=== PATIENT | female | born 1955 | race Caucasian/White ===

== ENCOUNTER → 2017-02-10 | Outpatient (CLI) | payer MEDICAID | LOC: CIMAGING 10:31 | PROVIDERS: ATTEND Family Medicine | DX: Z12.31 Encounter for screening mammogram for malignant neoplasm of breast (principal); Z80.3 Family history of malignant neoplasm of breast | CPT/HCPCS: G0202 ==

== ENCOUNTER 2018-04-01 12:09 | Inpatient (IN) | payer MEDICAID ==
[2018-04-01] MEDS ORDERED: NS 1,000 ML IV ONE (12:38)
[2018-04-01] MEDS ORDERED: ONDANSETRON 4 MG/2 ML VIAL IVP ONE (12:38)
--- NOTE | 2018-04-01 12:50 | EDPHY ---
H & P Time Seen by Provider: 04/01/18 12:42 HPI/ROS: CHIEF COMPLAINT: GI bleed HISTORY OF PRESENT ILLNESS: The patient is a 63-year-old female with a history of alcohol abuse, liver disease and esophageal bleed who presents emergency department with new onset hematemesis and black stools. Patient's last episode of GI bleed was in September of 2015. At that time she was diagnosed with a proximal esophageal web that was dilated as well as a grade 3 esophageal varices and the lower esophagus. The patient had banding. Patient continues to drink alcohol. She developed yolanda hematemesis just prior to arrival. She also noted dark stools. She was well yesterday. She is not lightheaded or dizzy. No abdominal pain. No chest pain or shortness of breath. No fevers or chills. REVIEW OF SYSTEMS: 10 systems were reveiwed and are negative with the exception of the elements mentioned in the history of present illness. Past Medical/Surgical History: Includes upper gastrointestinal bleed, esophageal varices, anemia, portal hypertensive gastropathy, alcohol liver disease with cirrhosis, alcohol abuse Social history: Patient drinks alcohol. She does not smoke. She occasionally smokes THC. Smoking Status: Never smoked Physical Exam: Vitals noted. On her arrival she was hypotensive with systolic pressure in the 70s. Repeat systolic blood pressure was 103. Heart rate was 77. GENERAL: No acute distress, alert. HEENT: Eyes normal to inspection, normal pharynx, no signs of dehydration. NECK: Normal, supple. RESPIRATORY: Clear to auscultation bilaterally, no rales, rhonchi or wheezing. CVS: Regular rate and rhythm, no rubs, murmurs, or gallops. ABDOMEN: Soft, nontender, mild abdominal distention. BACK: Normal to inspection, no CVA tenderness. SKIN: Normal color, no rash, warm, dry. No pallor. EXTREMITIES: No pedal edema, no calf tenderness, no Homans sign or cords, no joint swelling. NEURO/PSYCH: Alert and oriented, normal mood and affect, normal motor sensory exam. No obvious cranial nerve deficit. Constitutional: Initial Vital Signs Temperature (C) 36.7 C 04/01/18 12:15 Heart Rate 84 04/01/18 12:15 Respiratory Rate 18 04/01/18 12:15 Blood Pressure 78/54 L 04/01/18 12:15 O2 Sat (%) 96 04/01/18 12:15 O2 Delivery Mode Room Air Allergies/Adverse Reactions: No Known Allergies Allergy (Verified 09/18/15 02:15) Home Medications: Medication Instructions Recorded Aspirin EC [Aspirin EC 81 mg (*)] 81 mg PO HS 04/01/18 Propranolol HCl [Inderal 40mg (*)] 40 mg PO BID 04/01/18 Medical Decision Making ED Course/Re-evaluation: In the emergency department discussed possible etiologies with the patient. I answered all her questions. IV x2 was placed. Laboratory studies including type and screen were ordered. The patient was given Protonix and octreotide. After my initial evaluation I paged gastroenterology. 12:55: I discussed the case with Dr. Sterling. He recommended admission. He will evaluate the patient in ICU. I spoke with the hospitalist service. I discussed the plan with the patient. I also updated the nurse as to the care plan. Patient's chemistry panel is unremarkable. Total bilirubin is elevated 2.2. I conjugated bilirubin elevated at 0.8. Unconjugated bilirubin elevated at 1.4. AST and ALT are elevated at 99 in 59 respectively. Lipase is elevated at 518. Patient's INR is 1.46. Patient's white count is 8.5. Hematocrit is 42.3. Platelets are 334. Dr. Sterling is in the emergency department evaluated the patient. I discussed the plan with the patient. I answered all her questions. On recheck she was stable. Differential Diagnosis: My differential includes but is not limited to esophageal web, esophageal varices, peptic ulcer disease, perforation, mesenteric ischemia Critical Care Time: The patient required 35 min of critical care time. This was exclusive of any unbundled procedure. This was due the patient's significant gastrointestinal bleeding, hypotension, consultation with Gastroenterology and the hospitalist service, and time spent at the bedside. - Data Points Laboratory Results: Laboratory Results 04/01/18 12:30 04/01/18 12:30 04/01/18 04/01/18 04/01/18 12:30 12:30 12:30 WBC RBC Hgb Hct MCV MCH MCHC RDW Plt Count MPV Neut % (Auto) Lymph % (Auto) Custer % (Auto) Eos % (Auto) Baso % (Auto) Nucleat RBC Rel Count Absolute Neuts (auto) Absolute Lymphs (auto) Absolute Monos (auto) Absolute Eos (auto) Absolute Basos (auto) Absolute Nucleated RBC Immature Gran % Immature Gran # PT 17.9 SEC H SEC (12.0-15.0) INR 1.46 H (0.83-1.16) APTT 31.2 SEC SEC (23.0-38.0) Sodium 138 mEq/L mEq/L (135-145) Potassium 5.0 mEq/L mEq/L (3.3-5.0) Chloride 106 mEq/L mEq/L (97-110) Carbon Dioxide 27 mEq/l mEq/l (22-31) Anion Gap 5 mEq/L L mEq/L (8-16) BUN 19 mg/dL mg/dL (7-23) Creatinine 0.4 mg/dL L mg/dL (0.6-1.0) Estimated GFR > 60 Glucose 147 mg/dL H mg/dL (70-100) Calcium 8.7 mg/dL mg/dL (8.5-10.4) Total Bilirubin 2.2 mg/dL H mg/dL (0.1-1.4) Conjugated Bilirubin 0.8 mg/dL H mg/dL (0.0-0.5) Unconjugated Bilirubin 1.4 mg/dL H mg/dL (0.0-1.1) AST 99 IU/L H IU/L (14-46) ALT 59 IU/L H IU/L (9-52) Alkaline Phosphatase 108 IU/L IU/L (38-126) Total Protein 6.0 g/dL L g/dL (6.3-8.2) Albumin 3.5 g/dL g/dL (3.5-5.0) Lipase 518 IU/L H IU/L (23-300) Patient ABO/Rh A subgroup B POSITIVE Antibody Screen NEGATIVE 04/01/18 12:30 WBC 8.58 10^3/uL 10^3/uL (3.80-9.50) RBC 4.40 10^6/uL 10^6/uL (4.18-5.33) Hgb 13.7 g/dL g/dL (12.6-16.3) Hct 42.3 % % (38.0-47.0) MCV 96.1 fL fL (81.5-99.8) MCH 31.1 pg pg (27.9-34.1) MCHC 32.4 g/dL g/dL (32.4-36.7) RDW 14.3 % % (11.5-15.2) Plt Count 334 10^3/uL 10^3/uL (150-400) MPV 10.0 fL fL (8.7-11.7) Neut % (Auto) 78.2 % H % (39.3-74.2) Lymph % (Auto) 10.5 % L % (15.0-45.0) Custer % (Auto) 7.8 % % (4.5-13.0) Eos % (Auto) 1.7 % % (0.6-7.6) Baso % (Auto) 1.3 % % (0.3-1.7) Nucleat RBC Rel Count 0.0 % % (0.0-0.2) Absolute Neuts (auto) 6.71 10^3/uL H 10^3/uL (1.70-6.50) Absolute Lymphs (auto) 0.90 10^3/uL L 10^3/uL (1.00-3.00) Absolute Monos (auto) 0.67 10^3/uL 10^3/uL (0.30-0.80) Absolute Eos (auto) 0.15 10^3/uL 10^3/uL (0.03-0.40) Absolute Basos (auto) 0.11 10^3/uL H 10^3/uL (0.02-0.10) Absolute Nucleated RBC 0.00 10^3/uL 10^3/uL (0-0.01) Immature Gran % 0.5 % % (0.0-1.1) Immature Gran # 0.04 10^3/uL 10^3/uL (0.00-0.10) PT INR APTT Sodium Potassium Chloride Carbon Dioxide Anion Gap BUN Creatinine Estimated GFR Glucose Calcium Total Bilirubin Conjugated Bilirubin Unconjugated Bilirubin AST ALT Alkaline Phosphatase Total Protein Albumin Lipase Patient ABO/Rh Antibody Screen Medications Given: Discontinued Medications Sodium Chloride (Ns) 1,000 mls @ 0 mls/hr IV EDNOW ONE; Wide Open PRN Reason: Protocol Stop: 04/01/18 12:39 Last Admin: 04/01/18 12:44 Dose: 1,000 mls Octreotide Acetate 500 mcg/ (Sodium Chloride) 51 mls @ 5 mls/hr IV CONT WILIAM Stop: 09/28/18 12:59 Last Admin: 04/01/18 14:04 Dose: 51 mls Octreotide Acetate (Octreotide Acetate) 50 mcg IVP ONCE ONE Stop: 04/01/18 12:57 Last Admin: 04/01/18 14:03 Dose: 50 mcg Ondansetron HCl (Zofran) 4 mg IVP EDNOW ONE Stop: 04/01/18 12:39 Last Admin: 04/01/18 12:52 Dose: 4 mg Pantoprazole Sodium (Protonix) 80 mg IVP EDNOW ONE Stop: 04/01/18 12:55 Last Admin: 04/01/18 13:19 Dose: 80 mg Departure - Departure Disposition: [facility] Acute Clinical Impression: Upper gastrointestinal bleed Esophageal varices Qualifiers: Esophageal varices type: unspecified type Esophageal varices bleeding: with bleeding Qualified Code(s): I85.01 - Esophageal varices with bleeding Condition: Fair
[2018-04-01] MEDS ORDERED: PANTOPRAZOLE SODIUM 40 MG VIAL IVP ONE (12:54)
[2018-04-01] MEDS ORDERED: OCTREOTIDE ACETATE 50 MCG/ML INJ IVP ONE (12:56)
[2018-04-01] MEDS ORDERED: OCTREOTIDE ACETATE 500 MCG in NS 50 ML IV SCH ×2 (13:00→13:45)
[2018-04-01 13:05] LABS: PLATELET COUNT 334 10^3/uL (150-400)
[2018-04-01 13:15] LABS: INR 1.46 (0.83-1.16); PROTIME(PATIENT) 17.9 SEC (12.0-15.0)
[2018-04-01] MEDS ORDERED: PROMETHAZINE HCL 25 MG/ML INJ IVP PRN (13:37)
[2018-04-01] MEDS ORDERED: PROPOFOL 200 MG/20 ML VIAL ONE ×2 (14:03→14:41)
[2018-04-01] MEDS ORDERED: SUCCINYLCHOLINE CHLORIDE 200 MG/10 ML SYR IVP ONE (14:06)
[2018-04-01] MEDS ORDERED: ONDANSETRON 4 MG/2 ML VIAL IVP PRN (14:12)
[2018-04-01] MEDS ORDERED: PHENYLEPHRINE HCL 100 MCG/ML SYR IVP PRN (14:12)
[2018-04-01] MEDS ORDERED: NALOXONE HCL 0.4 MG/ML INJ IVP PRN ×2 (14:12→14:48)
[2018-04-01] MEDS ORDERED: fentaNYL 100 MCG/2 ML INJ IVP PRN (14:12)
--- NOTE | 2018-04-01 14:15 | PDANEPAE ---
ANE History of Present Illness Emergent EGD for GI Bleed ANE Past Medical History - Pulmonary History Hx Oxygen in Use at Home: No Hx Sleep Apnea: No - Endocrine History Hx Diabetes: No - Chronic Pain History Chronic Pain: No ANE Review of Systems Review of Systems: ANE Patient History - Allergies Allergies/Adverse Reactions: No Known Allergies Allergy (Verified 09/18/15 02:15) - Home Medications Home Medications: Aspirin EC [Aspirin EC 81 mg (*)] 81 mg PO HS 04/01/18 [Last Taken 03/31/18] Propranolol HCl [Inderal 40mg (*)] 40 mg PO BID 04/01/18 [Last Taken 04/01/18] - Smoking Hx Smoking Status: Never smoked IBAN Labs/Vital Signs - Labs Result Diagrams: 04/01/18 12:30 04/01/18 12:30 - Vital Signs Blood Pressure: 100/61 Heart Rate: 75 Respiratory Rate: 16 O2 Sat (%): 90 Height: 167.64 cm Weight: 69.853 kg ANE Physical Exam - Airway Neck exam: FROM Mallampati Score: Class 2 Mouth exam: normal dental/mouth exam - Pulmonary Pulmonary: clear to auscultation - Cardiovascular Cardiovascular: regular rate and rhythym - ASA Status ASA Status: II, E ANE Anesthesia Plan Anesthesia Plan: general endotracheal anesthesia
[2018-04-01] MEDS ORDERED: EPINEPHrine 1 MG/10 ML SYR IVP ONE (14:28)
--- NOTE | 2018-04-01 14:36 | ASMTCMCOM ---
CM Note CM Note Notes: Pt presented to the ED through triage for hematemesis and black stools. Pt admitted for upper GI bleed. Pt has a history of upper GI bleed (admtd back in September 2015), ETOH abuse, cirrhosis, esophageal varices. Pt continues to drink alcohol. Pt's boyfriend, Mark (c:[phone]) is at bedside. Exact DC needs unknown/TBD. Anticipate discussion re:ETOH cessation resources/treatment. Pt's PCP used to be Dr Milla Marvin at [facility] in [place] but last visit was in 2016. Pt may need a new PCP. Consider [facility] referral. CM to follow. Date Signed: 04/01/2018 02:35 PM Electronically Signed By:Marilee Isaac RN
--- NOTE | 2018-04-01 14:43 | PDGENHP ---
History and Physical - Chief Complaint hematemesis - History of Present Illness 63 yo female with h/o alcohol dependence and alcoholic liver disease with prior variceal bleed presented to ED after an episode of hematemesis. 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 Her last drink was around 2 am this morning. She then had a sparkling water with bitters and felt bloated. Then she began to have active hematemesis and describes several episodes of bright red blood. She also endorses melanotic stools. Her boyfriend then drove her to the ED, where she was hypotensive with a BP 70's/50's. This improved to 100's/70's after a NS bolus. Her hgb was normal. GI was notified. She received IV PPI and was started on an Octrotide drip. Further chart review reveals she had an upper GI bleed in 2015 and EGD at that time showed esophageal web with grade 3 varices, which were banded x4. She also has a history of ascites. She denies fevers or chills. She notes slight abdominal distention, but no significant abdominal pain. Post-EGD, she c/o epigastric / lower chest discomfort, which she describes as burning and aching. She has not had any further vomiting. History Information - Allergies/Home Medication List Allergies/Adverse Reactions: No Known Allergies Allergy (Verified 09/18/15 02:15) Home Medications: Aspirin EC [Aspirin EC 81 mg (*)] 81 mg PO HS 04/01/18 [Last Taken 03/31/18] Propranolol HCl [Inderal 40mg (*)] 40 mg PO BID 04/01/18 [Last Taken 04/01/18] I have personally reviewed and updated: family history, medical history, social history, surgical history - Past Medical History Additional medical history: Alcoholic liver disease with cirrhosis, h/o ascites. Esophageal varices - EGD 09/2015 showed grade 3 varices, banded x4. Portal hypertension with gastric varices. Alcohol dependence - Surgical History Additional surgical history: cataract surgery. 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 Review of Systems Review of Systems: ROS: 10pt was reviewed & negative except for what was stated in HPI & below Physical Exam Physical Exam: Temp Pulse Resp BP Pulse Ox 36.6 C 75 16 100/61 90 L 04/01/18 14:10 04/01/18 14:15 04/01/18 14:15 04/01/18 14:15 04/01/18 14:15 Constitutional: no apparent distress Eyes: PERRL Ears, Nose, Mouth, Throat: dry mucous membranes Cardiovascular: regular rate and rhythym Respiratory: no respiratory distress, clear to auscultation Gastrointestinal: other (soft, mild distention with fluid wave, nontender, no r/ r/g, +BS) Skin: warm Musculoskeletal: full muscle strength Neurologic: AAOx3 Psychiatric: interacting appropriately Lab Data & Imaging Review 04/01/18 15:50 04/01/18 12:30 WBC 8.58 10^3/uL (3.80-9.50) 04/01/18 12:30 RBC 4.40 10^6/uL (4.18-5.33) 04/01/18 12:30 Hgb 13.7 g/dL (12.6-16.3) 04/01/18 12:30 Hct 42.3 % (38.0-47.0) 04/01/18 12:30 MCV 96.1 fL (81.5-99.8) 04/01/18 12:30 MCH 31.1 pg (27.9-34.1) 04/01/18 12:30 MCHC 32.4 g/dL (32.4-36.7) 04/01/18 12:30 RDW 14.3 % (11.5-15.2) 04/01/18 12:30 Plt Count 334 10^3/uL (150-400) 04/01/18 12:30 MPV 10.0 fL (8.7-11.7) 04/01/18 12:30 Neut % (Auto) 78.2 % (39.3-74.2) H 04/01/18 12:30 Lymph % (Auto) 10.5 % (15.0-45.0) L 04/01/18 12:30 [place]han % (Auto) 7.8 % (4.5-13.0) 04/01/18 12:30 Eos % (Auto) 1.7 % (0.6-7.6) 04/01/18 12:30 Baso % (Auto) 1.3 % (0.3-1.7) 04/01/18 12:30 Nucleat RBC Rel Count 0.0 % (0.0-0.2) 04/01/18 12:30 Absolute Neuts (auto) 6.71 10^3/uL (1.70-6.50) H 04/01/18 12:30 Absolute Lymphs (auto) 0.90 10^3/uL (1.00-3.00) L 04/01/18 12:30 Absolute Monos (auto) 0.67 10^3/uL (0.30-0.80) 04/01/18 12:30 Absolute Eos (auto) 0.15 10^3/uL (0.03-0.40) 04/01/18 12:30 Absolute Basos (auto) 0.11 10^3/uL (0.02-0.10) H 04/01/18 12:30 Absolute Nucleated RBC 0.00 10^3/uL (0-0.01) 04/01/18 12:30 Immature Gran % 0.5 % (0.0-1.1) 04/01/18 12:30 Immature Gran # 0.04 10^3/uL (0.00-0.10) 04/01/18 12:30 PT 17.9 SEC (12.0-15.0) H 04/01/18 12:30 INR 1.46 (0.83-1.16) H 04/01/18 12:30 APTT 31.2 SEC (23.0-38.0) 04/01/18 12:30 Sodium 138 mEq/L (135-145) 04/01/18 12:30 Potassium 5.0 mEq/L (3.3-5.0) 04/01/18 12:30 Chloride 106 mEq/L (97-110) 04/01/18 12:30 Carbon Dioxide 27 mEq/l (22-31) 04/01/18 12:30 Anion Gap 5 mEq/L (8-16) L 04/01/18 12:30 BUN 19 mg/dL (7-23) 04/01/18 12:30 Creatinine 0.4 mg/dL (0.6-1.0) L 04/01/18 12:30 Estimated GFR > 60 04/01/18 12:30 Glucose 147 mg/dL (70-100) H 04/01/18 12:30 Calcium 8.7 mg/dL (8.5-10.4) 04/01/18 12:30 Total Bilirubin 2.2 mg/dL (0.1-1.4) H 04/01/18 12:30 Conjugated Bilirubin 0.8 mg/dL (0.0-0.5) H 04/01/18 12:30 Unconjugated Bilirubin 1.4 mg/dL (0.0-1.1) H 04/01/18 12:30 AST 99 IU/L (14-46) H 04/01/18 12:30 ALT 59 IU/L (9-52) H 04/01/18 12:30 Alkaline Phosphatase 108 IU/L (38-126) 04/01/18 12:30 Total Protein 6.0 g/dL (6.3-8.2) L 04/01/18 12:30 Albumin 3.5 g/dL (3.5-5.0) 04/01/18 12:30 Lipase 518 IU/L (23-300) H 04/01/18 12:30 Patient ABO/Rh A subgroup B POSITIVE 04/01/18 12:30 Antibody Screen NEGATIVE 04/01/18 12:30 Assessment & Plan Assessment: UGIB 2/2 varices - s/p banding x4, discussed with Dr. Sterling -cont Octreotide for 72 hrs -cont PPI -follow H&H, transfuse as indicated Alcoholic liver disease with h/o cirrhosis and ascites - some distention -check u/s to eval for ascites -IV Ceftriaxone x5 d given increased risk of infection with active bleeding Alcohol dependence - anticipate withdrawal -CIWA protocol, folate, vits -CM consult Chest pain - onset was post-EGD after esophageal banding and I suspect this is the source of her pain -check EKG -cont IV PPI as above Full code DVT PPLX - pharm contraindicated with GIB, SCD's Dispo - admit to inpt, will require >48 hrs hospitalization for ongoing management of variceal bleed
--- NOTE | 2018-04-01 14:47 | GIREPORT ---
[facility] Surgical Services - Endoscopy Department Patient Name: Sidra Tubbs Procedure Date: 04/01/2018 2:09 PM Patient Type: Emergency Department Attending MD/ ER Physician: Shay Sterling MD Procedure: Upper GI endoscopy Indications: Hematemesis, Cirrhosis with UGI bleeding suspected esophageal varices Providers: Shay Sterling MD Medicines: General Anesthesia Complications: No immediate complications. Description of Procedure: After obtaining informed consent, the endoscope was passed under direct vision. Throughout the procedure, the patient's blood pressure, pulse, and oxygen saturations were monitored continuously. The Endoscope was intro duced through the mouth, and advanced to the second part of duodenum. The [facility] er GI endoscopy was accomplished without difficulty. The patient tolerated th e procedure well. Findings: One benign-appearing, intrinsic stenosis was found at the cricopharynge us. This stenosis was moderately severe and measured 1 cm (inner diameter) x 1 cm (in length). The stenosis was traversed but there was resistance wit h passage of the endoscope with banding device. This was less difficult however than her previous EGD with banding in 2016. Three columns of oozing grade II varices were found in the lower third of the esophagus, 35 cm from the incisors. Stigmata of recent bleeding wer e evident and red wendie signs were present. The varices appeared larger th an they were at prior exam. Four bands were successfully placed with compl ete eradication, resulting in deflation of varices. Bleeding had stopped at the end of the procedure. Red blood was found in the cardia, in the gastric fundus and in the gas tric body. The cardia could not be completely evaluated for gastric varices due to the retention of blood. The examined duodenum was normal. Estimated Blood Loss: Estimated blood loss was minimal. Post Op Diagnosis: - Benign-appearing esophageal stenosis. This again made it difficult to pass the endoscope with banding device but it was less problematic than her previous EGD. - Bleeding grade II esophageal varices. Completely eradicated. Banded. - Red blood in the cardia, in the gastric fundus and in the gastric bod y. - Normal examined duodenum. - No specimens collected. Recommendation: - Return patient to ICU for ongoing care. - Clear liquids only - Monitor Hct q 6 hrs until stable - Octreotide continuous infusion for 72 hrs - IV pantoprazole 40mg BID - Antibiotic prophylaxis for SBP with ceftriaxone for 5 days - Depending on her clinical recovery I would recommend a repeat upper endoscopy in 4 weeks for retreatment. - Stop consuming ETOH. - Thank you for allowing me to be involved in the care of your patient. Attending Participation: I personally performed the entire procedure without the assistance of a fellow, resident or surg ical assistant auditor. Shay Sterling MD Shay Sterling MD 04/01/2018 2:47:18 PM This report has been signed electronicallyDavid MD Hallie Number of Addenda: 0 Note Initiated On: 04/01/2018 2:09 PM [email or web address]
[2018-04-01] MEDS ORDERED: LABETALOL HCL 5 MG/ML 20 ML MDV IVP PRN (14:48)
--- NOTE | 2018-04-01 14:48 | POSTANESTH ---
Post Anesthetic Evaluation Cardiovascular Status: Normal, Stable Respiratory Status: Normal, Stable Level of Consciousness/Mental Status: Can Participate in Eval, Alert and Oriented Pain Control: Adequate, Prn Tx Ordered Nausea/Vomiting Control: Adequate, Prn Tx Ordered Complications Possibly Related to Anesthesia: None Noted
--- NOTE | 2018-04-01 14:49 | GCON ---
REQUESTING PROVIDER: Dr. Ghosh. Dear Dr. Ghosh: Thank you very kindly for asking me to evaluate Mrs. Tubbs in consultation for hematemesis. I was contacted by Dr. Eagle in the ER today about her admission. She is a 63-year-old female with alcoh olism and known alcohol-related liver disease complicated by portal hypertension, and previous varice al bleeding in 2016, who is admitted with hematemesis that began about 11 o'clock today. She woke up feeling a little bit ill describing mostly malaise and no appetite. She drank some Jessica water with some "bitters" and her IBgard pills that she takes for bloating and gas, but this precipitated nausea and then an episode of large bloody vomiting. She describes it as bright red in color. The e mergency room team reported to me she had one other additional hematemesis that was read here in the ER. Her initial blood pressure was low with a systolic of 78/54, but with resuscitation of fluids sh keith is now has a blood pressure of 100/65, her heart rate is 71. She seems comfortable and in no distr ess. Her initial hematocrit is 42.3 with a baseline of 40. She has had a problem with ascites in e past, but denies any abdominal distention or pain. Her stool was brown in color this morning and s he has not had any recent melena. She has had no episodes of gastrointestinal bleeding since her hos pitalization in 2016. She continues to drink alcohol, typically a bottle or a bottle and a half of r ed wine a day. She is on no other blood thinners and does not take any NSAIDs. I am asked to assist with further evaluation and management. PAST MEDICAL HISTORY: Significant for: 1. 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 2. Known esophageal varices with previous variceal bleed with banding. 3. A proximal esophageal web. This was noted at her previous endoscopy with banding and did cause s ome technical difficulties and passage of the variceal band ligator. 4. Ascites related to liver disease. PAST SURGICAL HISTORY: Endoscopy with variceal band ligation. SOCIAL HISTORY: No tobacco. Marijuana use weekly. One and a half bottles of alcohol daily. FAMILY HISTORY: Significant for alcoholism in her mother. No other family members with known liver disease. MEDICATIONS ON ADMISSION: IBgard and propranolol 10 mg p.o. 3 times daily. ALLERGIES: None known. REVIEW OF SYSTEMS: CONSTITUTIONAL: She reports malaise. Denies headache, fever, chills, or weight l oss. HEENT: Denies headache, visual disturbances, epistaxis, or sore throat. No trouble with swallow ing. PULMONARY: No cough or shortness of breath. CARDIOVASCULAR: no chest pain or palpitations. NIKOS ROINTESTINAL: She reports feeling nauseous. She has had 2 episodes of moderate to large volume brig ht red hematemesis. No chest pain. No abdominal pain. Denies melena or hematochezia. No constipati on or diarrhea. Denies abdominal swelling or recent ascites. MUSCULOSKELETAL: No joint pain or defo rmity or swelling. NEUROLOGIC: No paresthesias or weakness. ENDOCRINE: Denies heat or cold intolera nce. No polyuria or polydipsia. RHEUMATOLOGIC: No joint pain. GENITOURINARY: No flank pain, dysuria , or hematuria. PHYSICAL EXAM: VITAL SIGNS: Blood pressure is 100/65, pulse is 71, respirations are 18, oxygenation is 94% on room air, temperature is 36.7. GENERAL: No acute distress. HEENT: Normocephalic, atrau matic. Perhaps mild scleral icterus. There are spider angiomata over the chest. Oropharynx is tanya r without blood. Nares are clear without blood. NECK: Supple. PULMONARY: Clear to auscultation bi laterally. CARDIOVASCULAR: Regular rate and rhythm. Systolic ejection murmur 3/6 at the left michel al border without radiation. ABDOMEN: Soft. I do not appreciate any overt ascites. No organomegal y. No tenderness, rebound, guarding, abdominal bruit, or palpable mass. MUSCULOSKELETAL: Normal ga it and station without joint deformity, swelling or warmth. DERMATOLOGIC: There are spider angiomata . I do not appreciate overt jaundice. No rash. NEUROLOGIC: Alert to person, place, and time. Vector Control Assistant nial nerves normal. Motor nonfocal. No asterixis. DATABASE: Includes a white blood count is 8.5, hematocrit 42.3, platelets are 334. INR is 1.46 with a PT of 17.9. Sodium 138, potassium 5.0, chloride 106, bicarbonate 27, BUN is 19 with a creatinine of 0.4, total bilirubin is 2.2 with a conjugated of 0.8, AST is 99, ALT is 59, alkaline phosphatase i s 108, albumin is 3.5, lipase is 518. IMPRESSION: 1. Hematemesis. 2. Cirrhosis secondary to alcohol. 3. Portal hypertension. 4. History of ascites. RECOMMENDATIONS: 1. Admit to ICU. 2. N.p.o. 3. Type and hold 2 units of packed cells. 4. Vitamin K 10 mg IV x1. 5. Octreotide 100 mcg bolus followed by 50 mcg/hour. I would also add a Protonix bolus and drip. 6. Upper endoscopy with anesthesia assistance for evaluation of her hematemesis and likely performan ce of variceal band ligation. 7. Ceftriaxone daily for the next 5 days for prophylaxis of SBP in the setting of previous ascites. 8. Hemoglobin and hematocrit q.4 hours. 9. Further recommendations to follow her endoscopic evaluation today. /[id number]/MODL
[2018-04-01] MEDS ORDERED: LORazepam 2 MG/ML INJ IVP PRN (14:53)
[2018-04-01] MEDS ORDERED: FLUMAZENIL 0.5 MG/5 ML MDV IVP PRN (14:53)
--- NOTE | 2018-04-01 15:00 | ASMTLACE ---
GIANCARLO Acuity / Level of Answers: Yes Care: Did the patient have an inpatient admission? Comorbidities - select Answers: Moderate or severe liver all that apply or renal disease Other Notes: upper GI bleed, espophageal varices # of Emergency department Answers: 1-2 visits in the last 6 months Social determinants Answers: History of substance abuse (ETOH, street drugs, prescription drugs, etc.) Score: 12 Date Signed: 04/01/2018 02:55 PM Electronically Signed By:Marilee Isaac RN
[2018-04-01] MEDS ORDERED: fentaNYL 100 MCG/2 ML INJ ONE (15:05)
--- NOTE | 2018-04-01 15:39 | PDMN ---
Medical Necessity Medical necessity: Pt meets IP criteria per & MCG M-180; est los >2 mn for eval/tx of upper GI bleed; admit to ICU for close monitoring/further workup, CIWA protocol, GI consult w/EGD & banding, IV Octreotide, IVFs & IV PPI; comorbid alcohol dependence, alcoholic liver disease w/cirrhosis, ascites, esophageal varices, portal HTN; per H&P & order 04/01/18
[2018-04-01] MEDS: THIAMINE HCL 500 MG in NS 100 ML IV SCH (15:58)
[2018-04-01] MEDS: NS 1,000 ML IV SCH ×2 (15:58→23:03)
[2018-04-01] MEDS: PANTOPRAZOLE SODIUM 40 MG VIAL IVP SCH (19:22)
[2018-04-01] MEDS: OCTREOTIDE ACETATE 500 MCG in NS 50 ML IV SCH (20:32)
[2018-04-02] MEDS: PANTOPRAZOLE SODIUM 40 MG VIAL IVP SCH ×4 (00:57→18:20)
[2018-04-02] MEDS: OCTREOTIDE ACETATE 500 MCG in NS 50 ML IV SCH ×3 (05:16→21:41)
[2018-04-02] MEDS: NS 1,000 ML IV SCH ×3 (05:37→21:40)
[2018-04-02] MEDS: ONDANSETRON 4 MG/2 ML VIAL IVP PRN ×2 (06:26→12:09)
[2018-04-02 06:37] LABS: INR 1.55 (0.83-1.16); PROTIME(PATIENT) 18.7 SEC (12.0-15.0)
[2018-04-02] MEDS: THIAMINE HCL 500 MG in NS 100 ML IV SCH (08:28)
--- NOTE | 2018-04-02 08:35 | HOSPPROG ---
Hospitalist Progress Note Assessment/Plan: UGIB 2/2 varices - s/p banding x4, stable overnight -cont Octreotide for 72 hrs, d/c 04/04 -cont PPI -follow H&H -check abdominal KUB/upright to r/o free air with increased pain and distention -IV dilaudid for pain, will discuss trial of GI cocktail vs sucralfate with GI Alcoholic liver disease with h/o cirrhosis and ascites - some distention -check u/s to eval for ascites, still pending -IV Ceftriaxone day 08/09 given increased risk of infection with active bleeding Alcohol dependence - anticipate withdrawal, though nothing significant yet. Last drink was 0200 04/01. -CIWA protocol, folate, vits -CM consult Chest pain - onset was post-EGD after esophageal banding and I suspect this is the source of her pain -check EKG- NSR, no ischemic changes -cont IV PPI as above Full code DVT PPLX - pharm contraindicated with GIB, SCD's Dispo - cont inpt, transfer to med/surg Subjective: Pt c/o increased epigastric burning and discomfort. Some nausea, but no vomiting since procedure. No fevers/chills. Had BM yesterday, denies ongoing melena. Taking some clears. Objective: Vital Signs Temp Pulse Resp BP Pulse Ox 36.9 C 71 15 122/66 H 94 04/02/18 04:00 04/02/18 07:00 04/02/18 07:00 04/02/18 07:00 04/02/18 07:00 Laboratory Results 04/02/18 04:30 04/02/18 04:30 04/01/18 04/02/18 04/03/18 05:59 05:59 05:59 Intake Total 4484.5 Output Total 320 Balance 4164.5 PT 18.7 SEC (12.0-15.0) H 04/02/18 04:30 INR 1.55 (0.83-1.16) H 04/02/18 04:30 - Physical Exam Constitutional: no apparent distress Eyes: PERRL Ears, Nose, Mouth, Throat: moist mucous membranes Cardiovascular: regular rate and rhythym Respiratory: no respiratory distress, clear to auscultation Gastrointestinal: other (soft, increased distention, +tenderness with some voluntary guarding, +BS) Skin: warm Musculoskeletal: full muscle strength Neurologic: AAOx3 Psychiatric: interacting appropriately ICD10 Worksheet Patient Problems: Problems Problem Status Onset Esophageal varices Acute Upper gastrointestinal bleed Acute Lower gastrointestinal bleeding Acute
[2018-04-02] MEDS ORDERED: HYDROmorphONE/DILAUDID 1 MG/ML INJ IVP PRN (08:59)
[2018-04-02] MEDS: LORazepam 1 MG TAB PO PRN (11:11)
[2018-04-02] MEDS: SUCRALFATE 1 GM/10 ML UDCUP PO SCH ×3 (11:11→21:01)
--- NOTE | 2018-04-02 11:29 | CPEKG ---
Test Reason : OPEN Blood Pressure : / mmHG Vent. Rate : 074 BPM Atrial Rate : 074 BPM P-R Int : 152 ms QRS Dur : 076 ms QT Int : 416 ms P-R-T Axes : 064 049 033 degrees QTc Int : 462 ms Sinus rhythm Nonspecific anterior T abnl Confirmed by Donita Marina ([id number]) on 04/02/2018 11:29:40 AM Referred By: Confirmed By:Donita Marina
--- NOTE | 2018-04-02 16:12 | SOAPPROG ---
SOAP Progress Note Assessment/Plan: Assessment: Plan: 04/02/18 16:08 A/P 1. GI bleed- suspect esophageal varices is the cause. S/p EGD with banding. No clinical evidence of ongoing bleed. Continue Octreotride and PPI infusion. On antibiotics. 2. Cirrhosis- alcoholic. 3. Ascites- minimal on ultrasound yesterday. Appears minimally distended. Consider repeat US if worsens. 4. Abdominal discomfort- recommend Carafate. Will monitor. Subjective: cc: Follow up GI bleed. This is my first encounter with this patient. No recent BM. Objective: Vital Signs Temp Pulse Resp BP Pulse Ox 37.6 C 77 12 96/67 L 92 04/02/18 15:16 04/02/18 15:16 04/02/18 15:16 04/02/18 15:16 04/02/18 15:16 Laboratory Results 04/02/18 04:30 04/02/18 04:30 04/01/18 04/02/18 04/03/18 05:59 05:59 05:59 Intake Total 4484.5 Output Total 320 Balance 4164.5 PT 18.7 SEC (12.0-15.0) H 04/02/18 04:30 INR 1.55 (0.83-1.16) H 04/02/18 04:30 Physical Exam - Physical Exam General Appearance: alert, no apparent distress EENT: No scleral icterus (R), No scleral icterus (L) Respiratory: lungs clear, normal breath sounds, No decreased breath sounds, No crackles, No rales, No rhonchi Cardiac/Chest: regular rate, rhythm, systolic murmur, No bradycardia, No tachycardia, No diastolic murmur Abdomen: normal bowel sounds, non-tender (minimal tenderness RUQ), distended ( minimal), No guarding, No rebound, No mass Skin: normal color, warm/dry Lymphatic: no adenopathy Neuro/Psych: alert, normal mood/affect, oriented x 3, No abnormal calibration engineer II-XII ICD10 Worksheet Patient Problems: Problems Problem Status Onset Lower gastrointestinal bleeding Acute Upper gastrointestinal bleed Acute Esophageal varices Acute
[2018-04-02] MEDS ORDERED: MBX SOLN 30 ML BOTTLE PO PRN (18:20)
[2018-04-03] MEDS: PANTOPRAZOLE SODIUM 40 MG VIAL IVP SCH ×4 (01:23→21:01)
[2018-04-03] MEDS: LORazepam 1 MG TAB PO PRN ×2 (02:39→13:21)
[2018-04-03] MEDS: SUCRALFATE 1 GM/10 ML UDCUP PO SCH ×4 (06:31→21:01)
[2018-04-03] MEDS: NS 1,000 ML IV SCH (08:14)
[2018-04-03] MEDS: OCTREOTIDE ACETATE 500 MCG in NS 50 ML IV SCH ×2 (09:02→22:22)
[2018-04-03] MEDS: THIAMINE HCL 500 MG in NS 100 ML IV SCH (10:24)
--- NOTE | 2018-04-03 12:35 | HOSPPROG ---
Hospitalist Progress Note Assessment/Plan: UGIB 2/2 varices - s/p banding x4, remains stable, no e/o ongoing bleeding. -cont Octreotide for 72 hrs, d/c 04/04 -cont PPI -follow H&H -sucralfate -advance diet Alcoholic liver disease with h/o cirrhosis and ascites - some distention, only minimal ascites on u/s -IV Ceftriaxone day 3/5 given increased risk of infection with active bleeding Alcohol dependence - anticipate withdrawal, though CIWAs only 2-4. Last drink was 0200 on 04/01. -CIWA protocol, folate, vits -CM consulted for resource counseling Adnexal mass - incidental finding, pelvic u/s today showed 11 cm cystic mass, discussed with Dr. Botello, who recommends pt see fur blowing machine attendant onc as outpt -send Ca-125 -CT abd/pelvis to evaluate for lymphadenopathy or omental involvement -will refer to Dr. Sonali Cao, fur blowing machine attendant onc, at [facility], sounds like she may have an office near [facility] Chest pain - onset was post-EGD after esophageal banding and I suspect this is the source of her pain. EKG non-ischemic. -cont IV PPI as above Full code DVT PPLX - pharm contraindicated with GIB, SCD's Dispo - cont inpt Subjective: Pt is tearful, anxious, wants to go home. No vomiting. No fevers/ chills. Epigastric pain is better, c/o RUQ pain a bit now. No CP or SOB. Objective: Vital Signs Temp Pulse Resp BP Pulse Ox 36.8 C 84 16 110/71 93 04/03/18 11:15 04/03/18 11:15 04/03/18 11:15 04/03/18 11:15 04/03/18 11:15 Laboratory Results 04/03/18 04:50 04/02/18 04:30 04/02/18 04/03/18 04/04/18 05:59 05:59 05:59 Intake Total 4484.5 1765 865 Output Total 320 1300 Balance 4164.5 465 865 PT 18.7 SEC (12.0-15.0) H 04/02/18 04:30 INR 1.55 (0.83-1.16) H 04/02/18 04:30 - Physical Exam Constitutional: no apparent distress Eyes: PERRL Ears, Nose, Mouth, Throat: moist mucous membranes Cardiovascular: regular rate and rhythym Respiratory: no respiratory distress, clear to auscultation Gastrointestinal: other (soft, mild distention, mild TTP RUQ, no r/r/g, +BS) Skin: warm Musculoskeletal: full muscle strength Neurologic: AAOx3 Psychiatric: interacting appropriately ICD10 Worksheet Patient Problems: Problems Problem Status Onset Esophageal varices Acute Upper gastrointestinal bleed Acute Lower gastrointestinal bleeding Acute
[2018-04-03] MEDS ORDERED: HYDROmorphONE/DILAUDID 1 MG/ML INJ IVP PRN (13:10)
[2018-04-03] MEDS ORDERED: oxyCODONE IR 5 MG TAB PO PRN (13:10)
--- NOTE | 2018-04-03 14:14 | SOAPPROG ---
SOAP Progress Note Assessment/Plan: Assessment: Plan: 04/02/18 16:08 A/P 1. GI bleed- suspect esophageal varices is the cause. S/p EGD with banding. No clinical evidence of ongoing bleed. Continue Octreotride and PPI infusion. On antibiotics. 2. Cirrhosis- alcoholic. 3. Ascites- minimal on ultrasound yesterday. Appears minimally distended. Consider repeat US if worsens. 4. Abdominal discomfort- recommend Carafate. Will monitor. 04/03/18 14:11 A/P 1. GI bleed- suspect secondary to esophageal varices. S/p EGD with banding. No signs of active GI bleed. On Octreotride and PPI. No recent BM. Recommend to continue Ocreotride for a total of 72 hours. Recommend to change PPI to BID oral tomorrow. Advance diet. Continue antibiotics. 2. Abdominal pain- suspect secondary to banding. Improved on Carafate. Subjective: cc: Follow up on GI bleed No recent BM Objective: Vital Signs Temp Pulse Resp BP Pulse Ox 36.8 C 84 16 110/71 93 04/03/18 11:15 04/03/18 11:15 04/03/18 11:15 04/03/18 11:15 04/03/18 11:15 Laboratory Results 04/03/18 04:50 04/02/18 04:30 04/02/18 04/03/18 04/04/18 05:59 05:59 05:59 Intake Total 4484.5 1765 865 Output Total 320 1300 700 Balance 4164.5 465 165 PT 18.7 SEC (12.0-15.0) H 04/02/18 04:30 INR 1.55 (0.83-1.16) H 04/02/18 04:30 Physical Exam - Physical Exam General Appearance: alert, no apparent distress EENT: No scleral icterus (R), No scleral icterus (L) Respiratory: lungs clear, normal breath sounds, No crackles, No rales, No rhonchi Cardiac/Chest: regular rate, rhythm, No bradycardia, No tachycardia, No diastolic murmur, No systolic murmur Abdomen: normal bowel sounds, non-tender, soft, distended (minimal), No rebound , No hernia, No hepatomegaly, No splenomegaly Skin: normal color, warm/dry Neuro/Psych: alert, normal mood/affect, oriented x 3 ICD10 Worksheet Patient Problems: Problems Problem Status Onset Esophageal varices Acute Upper gastrointestinal bleed Acute Lower gastrointestinal bleeding Acute
[2018-04-03] MEDS ORDERED: IOPAMIDOL (ISOVUE-300) 100 ML BTL ONE (14:38)
--- NOTE | 2018-04-03 19:00 | GCON ---
DATE OF CONSULTATION: 04/03/2018 CHIEF COMPLAINT: Abdominal pain with melena. HISTORY OF PRESENT ILLNESS: This is a 63-year-old female who was originally admitted to the medical service on the with upper GI bleed. Briefly, the patient abuses alcohol. She drinks about 1 to 1-1/2 bottles of wine a day and presented with hematemesis. Briefly, she was taken to the endo suite where multiple varices were subsequently banded. She was in the ICU and maintained on an octreotide drip. She was subsequently monitored in the ICU and is now on the floor. Briefly, she has had some worsening abdominal pain, which prompted my consultation. Upon talking to the patient, she is resting comfortably. She complains of right upper quadrant pain, which is worse with activity and deep breathing. She also had 1 bout earlier today where she passed some dark blood in her stool and has not had any melena since. She complains of indigestion. States that the right upper quadrant pain is about a 6/10 in intensity, worse with activity and deep breathing. No relation to food, nonradiating. PAST MEDICAL HISTORY: Alcoholic liver disease with cirrhosis and ascites, esophageal varices, grade 3 portal hypertension with gastric varices. PAST SURGICAL HISTORY: Cataract surgery and tonsillectomy. FAMILY HISTORY: Noncontributory. CURRENT MEDICATIONS: Reviewed. ALLERGIES: None. SOCIAL HISTORY: Continues to drink a bottle to a bottle and a half of wine a day and has done so for the last 30-40 years. Works in a liquor store currently. REVIEW OF SYSTEMS: A full 10-point review was performed. PHYSICAL EXAMINATION: VITAL SIGNS: Temperature 37.1, blood pressure 119/74, heart rate 68, and she is 94 on 2 L nasal cannula. CONSTITUTIONAL: She appears comfortable and in no apparent distress. EYES: She is somewhat jaundiced. Her pupils are equal, round, and reactive to light and accommodation. She has normal extraocular movements. EARS, NOSE, MOUTH, THROAT : She has dry mucous membranes. Her hearing is normal. Her ears appear normal and she has, what I would call, poor dentition. CARDIOVASCULAR: She has a regular rate and rhythm without any murmurs. RESPIRATORY: She has no respiratory distress, rales, or rhonchi. GI: She is minimally distended with normoactive bowel sounds. She is minimally tender to palpation in the right upper quadrant without rebound tenderness or guarding. SKIN: Warm, normal color. No rashes. MUSCULOSKELETAL: Full strength. No muscular tenderness with normal joint range of motion. NEUROLOGIC: She is alert and oriented x3. Her cranial nerves 2-12 appear to be intact. She has no weakness, no numbness, and no asterixis. PSYCH: She is interacting appropriately. She is not anxious or encephalopathic. LYMPH/HEME/IMMUNOLOGIC: She has no cervical, groin , or supraclavicular lymphadenopathy appreciated. LABS: Today, H and H stable at 11 and 35. INR is elevated at 1.5. Lactic acid drawn this afternoon was normal at 1.2. Chemistry is grossly abnormal. Glucose is high at 117. Total bilirubin is 2.2, conjugated bilirubin is 1.0, unconjugated bilirubin is 1.2, AST is high at 78. Her total protein is low at 5.1 with an albumin of 2.7. IMAGING: Includes a chest x-ray and abdominal ultrasound and a CT scan of her abdomen and pelvis. These images were personally reviewed. Briefly, they show hepatic cirrhosis with evidence of portal hypertension and ascites with partial thrombosis of the right SMV. Trace bilateral effusions, gallbladder thickening with cholelithiasis, and a 10 cm cystic mass present in the right hemipelvis. ASSESSMENT AND PLAN: A 63-year-old female with alcoholic liver disease secondary to alcohol with abdominal pain and recently banded esophageal varices. On my evaluation this evening, the patient is alert, oriented. Her abdomen is soft. She is minimally tender. I reviewed her imaging as well as her labs with her. Briefly, discussed her current state as well as future plans. She mentioned to me that she wishes to stop drinking, which I feel that would be the only way to stop the progression of her disease. Her MELD on admission was <10 which would be favorable if surgery would be required. Given her varicosities surgery would still not be recommended unless required but her 90 day mortality is still low. I agree with the current treatment plan of clear liquids and monitoring. Hopefully the melena is secondary to her UGIB and will stop now that it was successfully treated. [place] treatment for SMV partial occlusion would be anticoagulation but has clear contraindication to that and it is unclear whether or not this is a chronic process for her. I will continue to follow with you. If she were to have continued LGIB and hematochezia or melena would recommend CTA to assess arterial side first and if pain progressed may need operative intervention to assess/resect. /[id number]/MODL ABRIL
[2018-04-03] MEDS: LORazepam 0.5 MG TAB PO PRN (23:08)
[2018-04-03] MEDS ORDERED: HYDROmorphONE/DILAUDID 2 MG/ML INJ IVP PRN (23:30)
[2018-04-04] MEDS: PANTOPRAZOLE SODIUM 40 MG VIAL IVP SCH ×2 (01:17→06:30)
[2018-04-04] MEDS: SUCRALFATE 1 GM/10 ML UDCUP PO SCH ×4 (06:30→20:00)
--- NOTE | 2018-04-04 08:52 | HOSPPROG ---
Hospitalist Progress Note Assessment/Plan: #UGIB: due to bleeding varices. s/p banding. DC Octreotide today. PPI, Carafate #Melena: H/H stable. C diff negative. 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 Small, black stool. No dizziness Objective: Vital Signs Temp Pulse Resp BP Pulse Ox 37.1 C 86 16 101/64 92 04/04/18 08:00 04/04/18 08:00 04/04/18 08:00 04/04/18 08:00 04/04/18 08:00 Laboratory Results 04/04/18 05:00 04/02/18 04:30 04/03/18 04/04/18 04/05/18 05:59 05:59 05:59 Intake Total 1765 1465 Output Total 1300 2200 Balance 465 -735 PT 18.7 SEC (12.0-15.0) H 04/02/18 04:30 INR 1.55 (0.83-1.16) H 04/02/18 04:30 - Time Spent With Patient Time Spent with Patient: greater than 35 minutes Time Spent with Patient: Greater than 35 minutes spent on this patients care, greater than 50% of time spent counseling, educating, and coordinating care regarding the above mentioned plan. - Physical Exam Constitutional: no apparent distress Eyes: PERRL Ears, Nose, Mouth, Throat: moist mucous membranes Cardiovascular: regular rate and rhythym Respiratory: no respiratory distress Gastrointestinal: distension Genitourinary: no bladder fullness Skin: warm Musculoskeletal: full muscle strength Neurologic: AAOx3, CN II-XII Intact Psychiatric: interacting appropriately ICD10 Worksheet Patient Problems: Problems Problem Status Onset Esophageal varices Acute Upper gastrointestinal bleed Acute Lower gastrointestinal bleeding Acute
[2018-04-04] MEDS: NS 1,000 ML IV SCH (08:54)
[2018-04-04] MEDS: THIAMINE HCL 100 MG TAB PO SCH (10:29)
[2018-04-04] MEDS: PANTOPRAZOLE SODIUM 40 MG TAB PO SCH ×2 (10:29→20:00)
--- NOTE | 2018-04-04 11:19 | SOAPPROG ---
KATARZYNA Progress Note Assessment/Plan: Assessment: Plan: 04/02/18 16:08 A/P 1. GI bleed- suspect esophageal varices is the cause. S/p EGD with banding. No clinical evidence of ongoing bleed. Continue Octreotride and PPI infusion. On antibiotics. 2. Cirrhosis- alcoholic. 3. Ascites- minimal on ultrasound yesterday. Appears minimally distended. Consider repeat US if worsens. 4. Abdominal discomfort- recommend Carafate. Will monitor. 04/03/18 14:11 A/P 1. GI bleed- suspect secondary to esophageal varices. S/p EGD with banding. No signs of active GI bleed. On Octreotride and PPI. No recent BM. Recommend to continue Ocreotride for a total of 72 hours. Recommend to change PPI to BID oral tomorrow. Advance diet. Continue antibiotics. 2. Abdominal pain- suspect secondary to banding. Improved on Carafate. 04/04/18 11:15 A/P 1. GI bleed- secondary to esophageal varices. S/p EGD with banding. No evidence of continued GI bleed. Continue Octreotride for 72 hours. Continue PPI and abx for a total of 5 days. GI will sign off. Thank you for the consultation! Subjective: cc: Follow up esophageal varices. No recent BM. Tolerating diet. Objective: Vital Signs Temp Pulse Resp BP Pulse Ox 37.1 C 86 16 101/64 92 04/04/18 08:00 04/04/18 08:00 04/04/18 08:00 04/04/18 08:00 04/04/18 08:00 Laboratory Results 04/04/18 05:00 04/02/18 04:30 04/03/18 04/04/18 04/05/18 05:59 05:59 05:59 Intake Total 1765 1465 Output Total 1300 2200 Balance 465 -735 PT 18.7 SEC (12.0-15.0) H 04/02/18 04:30 INR 1.55 (0.83-1.16) H 04/02/18 04:30 Physical Exam - Physical Exam General Appearance: alert, no apparent distress EENT: No scleral icterus (R), No scleral icterus (L) Respiratory: lungs clear, normal breath sounds, No crackles, No rales, No rhonchi Cardiac/Chest: regular rate, rhythm, No diastolic murmur, No systolic murmur Abdomen: normal bowel sounds, non-tender, soft, No distended, No rebound Skin: normal color, warm/dry Neuro/Psych: normal mood/affect, oriented x 3, No abnormal email marketing processor II-XII ICD10 Worksheet Patient Problems: Problems Problem Status Onset Lower gastrointestinal bleeding Acute Upper gastrointestinal bleed Acute Esophageal varices Acute
--- NOTE | 2018-04-04 14:27 | ASMTCAGE ---
CAGE Do you feel you ought to Answers: Yes cut down on your drinking or drug use? Do people annoy you by Answers: No criticizing your drinking or drug use? Do you feel guilty about Answers: No your drinking or drug use? Do you drink or use drugs Answers: Yes first thing in the morning ([employer])? Date Signed: 04/04/2018 02:26 PM Electronically Signed By:SHELBY Urbina
--- NOTE | 2018-04-04 14:31 | ASMTCMCOM ---
CM Note CM Note Notes: CM met w/ pt and provided her w/ etoh resources and educational material. CAGE completed. Referral made to [facility]. Pt reports that she wants to stop drinking. Pt does not have any needs at this time. CM available for changes. Plan: Independent Date Signed: 04/04/2018 02:30 PM Electronically Signed By:SHELBY Urbian
--- NOTE | 2018-04-04 16:15 | SOAPPROG ---
SOAP Progress Note Assessment/Plan: Assessment: 63yo F c UGIB 2/2 esophageal varices s/p banding - VSS, HDS - Hb remains stable - abdominal exam reassuring, had more minimal melena today - cont current care. OK with DC tomorrow if still doing well and Hb stable. Plan: 04/04/18 16:14 Subjective: feels well, wants to go home Objective: Vital Signs Temp Pulse Resp BP Pulse Ox 37.0 C 85 16 129/80 H 88 L 04/04/18 15:27 04/04/18 15:27 04/04/18 15:27 04/04/18 15:27 04/04/18 15:27 Laboratory Results 04/04/18 11:40 04/02/18 04:30 04/03/18 04/04/18 04/05/18 05:59 05:59 05:59 Intake Total 1765 1465 Output Total 1300 2200 Balance 465 -735 PT 18.7 SEC (12.0-15.0) H 04/02/18 04:30 INR 1.55 (0.83-1.16) H 04/02/18 04:30 ICD10 Worksheet Patient Problems: Problems Problem Status Onset Esophageal varices Acute Upper gastrointestinal bleed Acute Lower gastrointestinal bleeding Acute
[2018-04-04] MEDS: LORazepam 0.5 MG TAB PO PRN (22:53)
[2018-04-05] MEDS: SUCRALFATE 1 GM/10 ML UDCUP PO SCH (06:33)
[2018-04-05 08:36] VITALS: BP 123/78
[2018-04-05] MEDS: THIAMINE HCL 100 MG TAB PO SCH (08:44)
[2018-04-05] MEDS: PANTOPRAZOLE SODIUM 40 MG TAB PO SCH (08:44)
--- NOTE | 2018-04-05 13:15 | GDS ---
DISCHARGE DIAGNOSES: 1. Upper gastrointestinal bleed secondary to esophageal bleed, status post banding. 2. A 10 cm adnexal mass. 3. SMV thrombosis. 4. Abdominal pain. 5. Alcoholic cirrhosis. 6. Alcohol dependence. 7. Chest pain. CONSULTATIONS: 1. Surgery. 2. GI. PROCEDURES: EGD, 04/01/2018: Benign esophageal stenosis. Bleeding grade 2 esophageal varices, completely eradicated and banded. HISTORY OF PRESENT ILLNESS: A 63-year-old female with alcohol dependence and cirrhosis, and prior variceal bleed, presented to the ER after hematemesis. She drinks 1.5 bottles of wine daily, has done so for 40 years. She had several episodes of bright red emesis prior to admission. HOSPITAL COURSE BY PROBLEM: 1. Upper GI bleed: EGD showed bleeding grade 2 varices. These were banded and eradicated. Her H and H have remained stable. She was treated with ceftriaxone for 5 days prophylaxis. Discharged on Protonix 40 mg b.i.d. Counseled on alcohol cessation. Follow up with Dr. Vinson. 2. Melena. This occurred after banding. Surgery was consulted. There was no evidence of any further active bleeding. No intervention was warranted. C diff was negative. 3. SMV thrombosis. She is not a safe candidate for anticoagulation with history of variceal bleed. 4. Compensated alcoholic cirrhosis. Again, she was treated with IV ceftriaxone , 5 days. She is to follow up with Dr. Vinson. She has mild ascites. Educated on fluid and sodium restriction. 5. Alcohol dependence. No evidence of withdrawal. She was counseled heavily on cessation. 6. Adnexal mass. She should follow up with outpatient gynecology. DISPOSITION: Patient will be stable for discharge home with her . NEW MEDICATIONS: 1. Protonix 40 mg b.i.d. 2. Thiamin. FOLLOWUP: 1. Dr. Vinson. 2. Gynecology for adnexal mass. PHYSICAL EXAM: VITAL SIGNS: Temperature 36.9, blood pressure 123/78, heart rate in the 80s, respirations 20, 88% on room air. GENERAL: No acute distress. HEENT: PERRLA. Moist mucous membranes. CV: Regular rate and rhythm. LUNGS: Clear. ABDOMEN: Mildly distended, but soft, nontender, nondistended. Positive bowel sounds. : No Lopez. MUSCULOSKELETAL: 5/5 upper and lower extremity strength. NEURO: 2 through 12 intact. PSYCH: Alert and oriented x3. Time spent on discharge: Greater than 30 minutes, counseling patient on medications, followup and alcohol cessation. /[id number]/MODL MTDD
== END 2018-04-05 10:30 | disposition home or self-care (01) | DRG 242 ==
LOC: F2N 15:35 → F3E 04-02 11:44
PROVIDERS: ADMIT Hospitalist; ATTEND Hospitalist
PROC: 06L38CZ Occlusion of Esophageal Vein with Extraluminal Device, Via Natural or Artificial Opening Endoscopic (ICD-10-PCS; principal; 2018-04-01 14:15)
DX: I85.01 Esophageal varices with bleeding (principal); E86.9 Volume depletion, unspecified; D39.8 Neoplasm of uncertain behavior of other specified female genital organs; I81 Portal vein thrombosis; K70.30 Alcoholic cirrhosis of liver without ascites; F10.20 Alcohol dependence, uncomplicated; R07.9 Chest pain, unspecified
CPT/HCPCS: 86304-90; 96374; J0330; J0696; J1170; J2270; J2354; J2405; J2704; J3010; J3411; Q9967

== ENCOUNTER 2018-04-08 13:54 | Emergency (ER) | payer OTHER, MEDICAID ==
[2018-04-08 14:05] VITALS: BP 152/92
--- NOTE | 2018-04-08 14:15 | EDPHY ---
H & P Stated Complaint: Feeling confused, heart racing, possible ETOH withdrawl, last drink 7 days Time Seen by Provider: 04/08/18 14:14 - Personal History Current Tetanus/Diphtheria Vaccine: Unsure Current Tetanus Diphtheria and Acellular Pertussis (TDAP): Unsure - Medical/Surgical History Hx Asthma: No Hx Chronic Respiratory Disease: No Hx Diabetes: No Hx Cardiac Disease: No Hx Renal Disease: No Hx Cirrhosis: No Hx Alcoholism: Yes Hx HIV/AIDS: No Hx Splenectomy or Spleen Trauma: No Other PMH: etoh liver failure--esophageal banding 2015. surg-tonsillectomy - Social History Smoking Status: Former smoker Constitutional: Initial Vital Signs Temperature (C) 36.7 C 04/08/18 13:58 Heart Rate 118 H 04/08/18 13:58 Respiratory Rate 24 H 04/08/18 13:58 Blood Pressure 152/92 H 04/08/18 13:58 O2 Sat (%) 96 04/08/18 13:58 O2 Delivery Mode Room Air Allergies/Adverse Reactions: No Known Allergies Allergy (Verified 09/18/15 02:15) Home Medications: Medication Instructions Recorded Pantoprazole Sodium [Protonix 40mg 40 mg PO BID #60 tab 04/04/18 (*)] Thiamine HCl [Vitamin B-1] 100 mg PO DAILY #30 tab 04/04/18 Propranolol HCl 04/08/18 Medical Decision Making ED Course/Re-evaluation: CHIEF COMPLAINT: Alcohol intoxication. HISTORY OF PRESENT ILLNESS: This patient is a chronic alcoholic. She has been sober for over a week. She presented here with a gastrointestinal bleed about 1 week ago and has not had any alcohol since. Her physician sent her in because she was feeling a little anxious and having some palpitations. She does not want rehab. She was given propranolol all. She has not taken it. Her doctor sent her for further evaluation. She has no actual complaints except some intermittent palpitations and some jitteriness. REVIEW OF SYSTEMS: A comprehensive 10 system review of systems is otherwise negative aside from elements mentioned in the history of present illness and medical decision making. PHYSICAL EXAM: General Appearance: Alert, well hydrated, appropriate, and non-toxic appearing. Head: Atraumatic without scalp tenderness or obvious injury Eyes: Pupils equal, round, reactive to light and accommodation, EOMI, no trauma , no injection. Ears: Clear bilaterally, no perforation, normal landmarks Nose: Atraumatic, no rhinorrhea, clear. Throat: There is no erythema or exudates, no lesions, normal tonsils, mucus membranes moist. Neck: Supple, 2+ carotid upstroke, nontender, no lymphadenopathy. Respiratory: No retractions, no distress, no wheezes, and no accessory muscle use. Lungs are clear to auscultation bilaterally. Cardiovascular: Regular rate and rhythm, no murmurs, rubs, or gallops. Bilateral carotid, radial, dorsalis pedis, and posterior tibial pulses intact. Good capillary refill all extremities. Gastrointestinal: Abdomen is soft, nontender, non-distended, no masses, no rebound, no guarding, no peritoneal signs. Musculoskeletal: Normal active ROM of all extremities, atraumatic. Neurological: Alert, appropriate, and interactive. The patient has normal DTRs and non-focal cranial nerves, motor, sensory, and cerebellar exam. Skin: No rashes, good turgor, no nodules on palpation. PAST MEDICAL HISTORY: Chronic alcoholism PAST SURGICAL HISTORY: Noncontributory SOCIAL HISTORY: Abuses alcohol, denies drug abuse, uses tobacco, employed, DIAGNOSTICS/PROCEDURES/CRITICAL CARE TIME: The differential diagnosis for the patient's palpitations included but was not limited to various causes of sinus tachycardia such as dehydration and medicines, SVT, atrial flutter, atrial fibrillation, alcohol withdrawal, pulmonary causes. DIFFERENTIAL DIAGNOSIS: MEDICAL DECISION MAKING: I serially examined this patient since the patient's arrival here in the emergency department. The patient continues to become more and more sober with each examination. I serially questioned the patient and the patient's story given initially has not changed. The patient still denies any trauma, any head injury, and any illicit drug use. At this point, the patient is walking the department freely and is clinically sober. Patient does not want rehab. Patient has appropriate medicine I recommend taking her propranolol for her jitteriness. Patient has been working daily since her hospital admission. Patient can follow up with her PCP. Departure - Departure Disposition: Home, Routine, Self-Care Clinical Impression: Alcohol dependence Qualifiers: Substance use status: uncomplicated Qualified Code(s): F10.20 - Alcohol dependence, uncomplicated Condition: Good Instructions: Alcohol Dependence (ED) Referrals: CHENTE SUTTON [Primary Care Provider] - As per Instructions
== END 2018-04-08 14:47 | disposition home or self-care (01) ==
DX: F10.20 Alcohol dependence, uncomplicated (principal); Z87.891 Personal history of nicotine dependence

== ENCOUNTER → 2018-05-02 | Outpatient (CLI) | payer MEDICAID | LOC: CIMAGING 12:06 | PROVIDERS: ATTEND Family Medicine | DX: Z12.31 Encounter for screening mammogram for malignant neoplasm of breast (principal); Z80.3 Family history of malignant neoplasm of breast ==

== ENCOUNTER → 2018-08-12 | Outpatient (CLI) | payer MEDICAID ==
[~2018-08-12] MED LIST: IOPAMIDOL (ISOVUE-370) 150 ML BTL IV ONE
== END ==
LOC: CIMAGING 09:23
PROVIDERS: ATTEND Family Medicine
DX: N83.201 Unspecified ovarian cyst, right side (principal); K74.60 Unspecified cirrhosis of liver; K76.9 Liver disease, unspecified
CPT/HCPCS: 74177-PO; 82565-PO; Q9967